=== PATIENT | male | born 1975 | race Hispanic/Latino ===

== ENCOUNTER → 2017-11-29 | Outpatient (CLI) | payer OTHER ==
--- NOTE | 2017-11-29 18:47 | Diagnostic Imaging Report ---
PROCEDURE: CT ABDOMEN AND PELVIS WITHOUT CONTRAST TECHNIQUE: The abdomen and pelvis were scanned utilizing a multidetector helical scanner from the diaphragm to the lesser. No IV contrast was administered. Coronal and sagittal multiplanar reformations were obtained. DLP: 826 mGy-cm COMPARISON: CT dated 12/27/16 INDICATIONS: stone, hematuria FINDINGS: ABSENCE OF INTRAVENOUS CONTRAST DECREASES SENSITIVITY FOR DETECTION OF FOCAL LESIONS AND VASCULAR PATHOLOGY. LOWER THORAX: Normal. HEPATOBILIARY: Hepatic steatosis. No biliary ductal dilatation. Gallbladder is unremarkable. SPLEEN: No splenomegaly. PANCREAS: No focal masses or ductal dilatation. ADRENALS: No adrenal nodules. KIDNEYS/URETERS: No hydronephrosis or stones. Limited for evaluation of renal parenchyma without intravenous contrast. PELVIC ORGANS/BLADDER: Unremarkable. PERITONEUM / RETROPERITONEUM: No free air or fluid. LYMPH NODES: No lymphadenopathy. VESSELS: Unremarkable. GI TRACT: No distention or wall thickening. Normal appendix. BONES AND SOFT TISSUES: Unremarkable. Small fat containing umbilical hernia. IMPRESSION: No nephrolithiasis or evidence of obstructive urolithiasis. Hepatic steatosis. Dictated by: Lucian Roman M.D. on 11/29/2017 at 18:48 Electronically approved by: Lucian Roman M.D. on 11/29/2017 at 18:48
== END | disposition home or self-care (01) ==
LOC: CT 18:19
PROVIDERS: ATTEND Family Medicine
DX: R31.9 Hematuria, unspecified (principal); N23 Unspecified renal colic; K76.0 Fatty (change of) liver, not elsewhere classified
CPT/HCPCS: 74176

== ENCOUNTER → 2019-04-20 | Day surgery (SDC) | payer OTHER ==
[2019-04-17 11:19] LABS: BASOPHILS % 0.5 % (0.0-1.0); EOSINOPHILS # (AUTO) 0.3 (0.0-0.4); EOSINOPHILS % 3.3 % (0.0-6.0); HEMATOCRIT 49.1 % (38.2-49.6); HEMOGLOBIN 17.3 g/dL (14.0-18.0); LYMPHOCYTES # (AUTO) 2.5 (1.0-3.2); LYMPHOCYTES % 32.2 % (18.0-39.1); MEAN CORPUSCULAR HEMOGLOBIN 29.6 pg (28-32); MEAN CORPUSCULAR HGB CONC 35.2 g/dL (31-35); MEAN CORPUSCULAR VOLUME 84.1 fL (81-99); MONOCYTES # (AUTO) 0.8 (0.2-0.8); MONOCYTES % 10.6 % (4.4-11.3); NEUTROPHILS % 51.7 % (38.7-80.0); PLATELET COUNT 191 x10e3/uL (140-360); RED BLOOD COUNT 5.84 x10e6/uL (4.3-5.7); RED CELL DISTRIBUTION WIDTH 13.2 % (11.7-14.4)
[2019-04-17 11:35] LABS: ANION GAP 14.8 mmol/L (8-16); BLOOD UREA NITROGEN 17 mg/dL (7-26); BUN/CREATININE RATIO 16 (6-25); CARBON DIOXIDE 24 mmol/L (22-29); CHLORIDE 102 mmol/L (98-107); CREATININE, SERUM 1.04 mg/dL (0.72-1.25); EST GLOMERULAR FILTRATION RATE > 60 ML/MIN (60-); GLUCOSE 77 mg/dL (74-118); POTASSIUM 3.8 mmol/L (3.5-5.1); SODIUM 137 mmol/L (136-145)
[~2019-04-20] MED LIST: BUPIVACAINE 0.25%/EPI 30ML SDV INJ ONE; DEXAMETHASONE SOD PHOS INJ 4 MG/ML VIAL ONE; FENTANYL CITRATE/PF 100MCG/2 ML INJ ONE; GLYCOPYRROLATE INJ 1MG/ 5 ML SYR ONE; KETOROLAC TROMETHAMINE 30 MG/ML VIAL ONE; LIDOCAINE HCL 2% LOCAL INJ 5 ML SDV VIAL INJ ONE; MIDAZOLAM HCL 2 MG/2 ML VIAL ONE; NEOSTIGMINE 5 MG/5ML SYR ONE; ONDANSETRON HCL INJ 2MG/ML 2ML 2 MG/ML VIAL ONE; PROPOFOL IV EMULSION 10 MG/ML 20 ML VIAL ONE; ROCURONIUM BROMIDE 10 MG/ML 5ML VIAL ONE; SEVOFLURANE INHAL SOLN 250 ML PEN BTL ONE
[2019-04-20 11:05] VITALS: BP 121/89
--- NOTE | 2019-04-20 11:16 | Operative Report ---
DATE OF PROCEDURE: 04/20/2019 SURGEON: Buddy Ryan MD PREOPERATIVE DIAGNOSIS: Incarcerated umbilical hernia. POSTOPERATIVE DIAGNOSIS: Incarcerated umbilical hernia. OPERATION PERFORMED: Repair of incarcerated umbilical hernia with Ventralex patch. ANESTHESIA: General. COMPLICATIONS: None. ESTIMATED BLOOD LOSS: Minimal. DESCRIPTION OF PROCEDURE: With the patient lying in bed in the supine position, under good general anesthesia, the abdomen was prepped with Betadine solution and draped in the usual manner, a semilunar subumbilical incision was made, it was carried down through the subcutaneous tissue down to the fascia. The hernia sac was then encircled with normal fascia all the way around. The umbilicus was then detached from the hernia sac contained within the hernia sac. There was a large amount of omentum, that could not be reduced to the intraabdominal cavity, so the omentum was then ligated with 2-0 Vicryl and divided. The axis of the hernia sac was then resected. The defect was then inspected and a medium-sized Ventralex patch was then placed intra-abdominally and deployed without any difficulty. The defect was then closed transversely using interrupted sutures of 0 Ethibond anchoring the mesh on the way out; this gave us satisfactory repair without any tension, the whole area was thoroughly irrigated. Perfect hemostasis was ascertained. The fascia was then infiltrated with 0.25% Marcaine solution. The umbilicus was then tacked back down to the midline fascia with 3-0 Vicryl. The subcutaneous tissue was approximated with 3-0 Vicryl and the skin was closed with interrupted vertical mattress sutures of 3-0 silk. A dressing was applied. The sponge, lap, and needle count was correct. The patient tolerated the procedure well and returned to the recovery room in stable condition. Buddy Ryan MD JLR/MODL /[id number]
== END | disposition home or self-care (01) ==
LOC: OR 06:25
PROVIDERS: ATTEND Surgery
DX: K42.0 Umbilical hernia with obstruction, without gangrene (principal); Z01.810 Encounter for preprocedural cardiovascular examination; Z01.812 Encounter for preprocedural laboratory examination; H91.8X2 Other specified hearing loss, left ear
CPT/HCPCS: 36415; 49587; 80048; 85025; 93005; C1781; J1100; J1885; J2001; J2250; J2405; J2704; J3010; J3490

== ENCOUNTER → 2021-04-24 | Outpatient (CLI) | payer OTHER | LOC: CT 13:07 | PROVIDERS: ATTEND Family Medicine | DX: R31.9 Hematuria, unspecified (principal) | CPT/HCPCS: 74176 ==